=== PATIENT | male | born 1995 | race Caucasian/White ===

== ENCOUNTER → 2019-07-20 | Outpatient (CLI) | payer BC ==
[2019-07-20 09:17] LABS: HCT 42.9 % (39.0-53.0); HGB 14.5 gm/dL (13.0-17.5); MCH 30.4 pg (25.0-35.0); MCHC 33.8 g/dL (31.0-37.0); MCV 90.1 fL (80.0-100.0); Mean Platelet Volume 7.6; Platelet Count 183 k/uL (150-450); RBC 4.76 m/uL (4.30-5.90); RDW 12.9 % (11.5-15.5); WBC 3.7 k/uL (3.8-10.6)
[2019-07-20 12:25] LABS: Erythrocyte Sedimentation Rate 4 mm/hr (0-15)
[2019-07-20 18:40] LABS: African American GFR (CKD) 122.4 (60.0-200.0); Chol/HDL Ratio 3.55; LDL Cholesterol,Calculated 126.4 mg/dL (0.0-131.0); Non-African American GFR(CKD) 105.6 (60.0-200.0); Potassium 4.2 mmol/L (3.5-5.5); VLDL Calculation 21.6 mg/dL (5.00-40.00)
== END | disposition home or self-care (01) ==
LOC: LABWHC1 08:48
PROVIDERS: ATTEND Family Medicine
DX: Z00.00 Encounter for general adult medical examination without abnormal findings (principal)
CPT/HCPCS: 36415; 80048; 80061; 84443; 84450; 84460; 85027; 85652